=== PATIENT | female | born 1995 | race Hispanic/Latino ===

== ENCOUNTER 2017-04-11 17:54 | Emergency (ER) | payer OTHER ==
[~2017-04-11] VITALS: Ht 162.6 cm; Wt 59.0 kg
--- NOTE | 2017-04-11 18:04 | ER.PDOC ---
General Chief Complaint: Requesting Medical Care Stated Complaint: COUGH,RUNNY NOSE,VOMITING Time seen by MD: 18:04 Source: patient Exam Limitations: no limitations History of Present Illness Initial Comments Pt with cough, no expectoration since , on and off Timing/Duration: gradual Severity: moderate Associated Symptoms: cough, mild SOB Allergies: Coded Allergies: morphine (Verified Allergy, Unknown, RA, 04/11/17) Home Meds No Active Prescriptions or Reported Meds Constitutional: no symptoms reported EENTM: no symptoms reported Respiratory: cough, shortness of breath Cardiovascular: no symptoms reported Gastrointestinal: no symptoms reported Genitourinary: no symptoms reported Musculoskeletal: no symptoms reported Skin: no symptoms reported Psychiatric/Neurological: no symptoms reported Endocrine: no symptoms reported Hematologic/Lymphatic: no symptoms reported Physical Exam General Appearance: alert, no distress Eye: eyes nml inspection, lids & conjunct. nml, PERRL, no nystagmus Ear: ear nml Nose: nose nml Throat: pharynx nml, airway nml Neck: nml inspection, supple Respiratory: rhonchi (diffuse) CVS: reg rate & rhythm, heart sounds nml Skin: color nml, no rash, warm/dry Extremities: non-tender, nml ROM, no pedal edema NEURO/PSYCH: oriented x 3, CN's nml as tested, motor nml, sensation nml, mood/ affect nml Departure Time of Disposition: 18:16 Disposition: 01 HOME, SELF-CARE Impression: Primary Impression: Bronchitis Additional Impressions: Cough Bronchospasm with bronchitis, acute Condition: Stable Patient Instructions: Acute Bronchitis, [id number] Referrals: PCP,UNKNOWN (PCP) PRIMARY CARE PROVIDER Scripts No Active Prescriptions or Reported Meds Duration or Time Spent with Pa: JENNIFER VILLA MD Apr 11, 2017 18:04
[2017-04-11 18:06] VITALS: BP 125/73
--- NOTE | 2017-04-11 18:08 | NUR ---
ARRIVAL PATIENT ARRIVED TO [facility] AMBULATORY, C/O OF COUGH,RUNNY NOSE AND VOMITING SINCE AROUND JAMES TIME, PATIENT STATES SHE WAS SEEN IN [facility] AND DX WITH BRONCHITIS, TODAY COUGHING UNTIL SHE THROWS UP, HERE TODAY FOR FURTHER EVAL.
[2017-04-11 18:24] VITALS: BP 122/68
== END 2017-04-11 18:24 | disposition home or self-care (01) ==
LOC: ER 17:54
DX: J20.9 Acute bronchitis, unspecified (principal); Z88.5 Allergy status to narcotic agent
CPT/HCPCS: 99283